=== PATIENT | male | born 2000 | race African-American/Black ===

== ENCOUNTER 2024-02-24 17:03 | Emergency (ER) | payer OTHER ==
[~2024-02-24] VITALS: Ht 167.6 cm; Wt 58.2 kg
[2024-02-24 17:10] VITALS: TEMP 98.4
[2024-02-24] MEDS: KETOROLAC TROMETHAMINE 30 MG/ML VIAL IM ONE (19:40)
[2024-02-24] MEDS ORDERED: IBUP-1492 PO (20:13)
[2024-02-24 20:58] VITALS: BP 135/70; PULSE 75; RESP 16
== END 2024-02-24 21:01 | disposition home or self-care (01) ==
LOC: EMS 17:03
DX: G44.209 Tension-type headache, unspecified, not intractable (principal)
CPT/HCPCS: 99283; 96372; J1885